=== PATIENT | female | born 1955 | race Caucasian/White ===

== ENCOUNTER → 2020-05-07 | Outpatient (CLI) | payer OTHER ==
[~2020-05-07] MED LIST: CAPTPOW PO; CLON-412 OR; EVISTA PO; HCTZ PO; IRONTAB3 PO; LEXA1TAB OR; MET; METFORMIN PO; OMEP20TA7 OR; PERC7.5T8 OR; PRAVASTATIN PO; XANA0.25 OR
--- NOTE | 2020-05-12 14:18 | SLEEPCENT ---
DATE: 05/07/2020 ORDERED BY: Yaakov Fields Nocturnal polysomnography was performed for evaluation of sleep physiology in this patient with a history of excessive somnolence and nonrestorative sleep and snoring, who has comorbidities of hypertension and diabetes. There was 8 hours and 7 minutes of data reviewed. There was 402.5 minutes of sleep identified. Sleep latency was prolonged at 40 minutes. REM latency was very prolonged at 312 minutes. Sleep architecture showed fragmentation and poor progression. There were two REM cycles noted late in the study. Overall sleep efficiency was 83.5%. The electrocardiogram showed a sinus rhythm with an average heart rate of 76 beats per minute. Unifocal ventricular ectopic beats were seen. EEG showed reasonably normal waveforms for wake and sleep. There were 190 respiratory events identified of 10 seconds in duration or greater, for an apnea-hypopnea index of 28.3. The events were obstructive, not exclusive to sleep stage nor body posture. Arousals from respiratory events occurred 5.1 times per hour, and oxygen desaturations were seen below 90%. IMPRESSION: Obstructive sleep apnea syndrome (G47.33). Apnea-hypopnea index 23.8. RECOMMENDATION: The patient should be encouraged to return to the sleep disorder center for pressure therapy. In the interim, alcohol and sedative avoidance should be practiced and caution exercised during the operation of motor vehicles. HAYLEYD
== END ==
LOC: M SLEEP 20:00
PROVIDERS: ATTEND Physician Assistant
DX: G47.33 Obstructive sleep apnea (adult) (pediatric) (principal); R40.0 Somnolence

== ENCOUNTER → 2020-07-02 | Outpatient (CLI) | payer OTHER ==
--- NOTE | 2020-07-06 14:25 | SLEEPHOME ---
DATE: 07/02/2020 ORDERED BY: MIKAELA Weber Nocturnal polysomnography was performed for the titration of pressure therapy in this patient with obstructive sleep apnea syndrome with apnea-hypopnea index of 23.8. For testing a ResMed AirFit F30 full face mask of small size was used, 4 cm of water pressure were applied to the circuit, and the lights were extinguished. Seven hours and 34 minutes of data were reviewed. There were 385 minutes of sleep identified. Sleep latency was short at 7.5 minutes. REM sleep was delayed at 223 minutes. Sleep architecture was better with optimal pressure therapy and there were three REM cycles noted. Overall sleep efficiency was 85.9%. The electrocardiogram showed a sinus rhythm with an average heart rate of 68 beats per minute. EEG showed normal waveforms for wake and sleep. Respiratory events were best palliated with CPAP at a pressure of +10 with some persistent limb activity noted in the EMG leads. Limb movement arousal index was 59.2. IMPRESSION: * Obstructive sleep apnea syndrome (G47.33). * Possible periodic limb movement disorder (G47.61). RECOMMENDATION: Nightly use of pressure therapy at 10 cm of water should be sufficient to address the obstructive respiratory events. Should sleep symptoms persist, intervention to reduce the frequency or arousal from limb activity may also be helpful. MTDD
== END ==
LOC: M SLEEP 20:00
PROVIDERS: ATTEND Physician Assistant
DX: G47.33 Obstructive sleep apnea (adult) (pediatric) (principal)

== ENCOUNTER → 2020-07-20 | Outpatient (CLI) | payer SELFPAY | LOC: M LABSMTC 12:04 | PROVIDERS: ATTEND Pediatrics | DX: Z20.828 Contact with and (suspected) exposure to other viral communicable diseases (principal) ==

== ENCOUNTER → 2020-08-05 | Outpatient (REF) | payer OTHER ==
[2020-08-06 16:08] LABS: ENDOMYSIAL ABY IgA Negative (Negative); TISSUE TRANSGLUTAMINASE IgA <2 U/mL (0-3); TISSUE TRANSGLUTAMINASE IgG 4 U/mL (0-5)
== END ==
LOC: M LAB REF 12:13
PROVIDERS: ATTEND Internal Medicine
DX: K21.9 Gastro-esophageal reflux disease without esophagitis (principal); D12.5 Benign neoplasm of sigmoid colon

== ENCOUNTER → 2021-04-05 | Outpatient (CLI) | payer MEDICARE ==
--- NOTE | 2021-04-05 17:01 | DEXAMM ---
INDICATION: Z13.820 SCREENING FOR OSTEOPOROSIS. COMPARISON: 02/03/2014, 11/11/2003. TECHNIQUE: Bone density was measured using dual-energy x-ray absorptiometry (DEXA). FINDINGS: AP SPINE L1-L4 BMD 1.449 g/cm2 Young Adult T-Score 2.1 Age Matched Z-Score 3.7. LT FEMUR, TOTAL BMD 1.042 g/cm2 Young Adult T-Score 0.3 Age Matched Z-Score 1.5. LT NECK BMD 1.024 g/cm2 Young Adult T-Score -0.1 Age Matched Z-Score 1.4. RT FEMUR, TOTAL BMD 1.105 g/cm2 Young Adult T-Score 0.8 Age Matched Z-Score 2.0. RT NECK BMD 1.118 g/cm2 Young Adult T-Score 0.6 Age Matched Z-Score 2.1. IMPRESSION: There is normal bone density of the spine. There is normal bone density of the left hip. There is normal bone density of the right hip. The density of the spine has increased 25.7% since the initial exam on 11/11/2003. The density of the spine increased 25.5% since most recent exam on 02/03/2014. The density of the left hip has decreased 0.4% since initial exam on 11/11/2003. The density of the left hip has increased 4.3% since most recent exam on 02/03/2014. The density of the right hip has increased 4.3% since the initial exam on 11/11/2003. The density of the right hip has increased 3.9% since the most recent exam on 02/03/2014. FOLLOW-UP: Recommendation for the next bone density exam: 5 years. <Electronically signed by Olman Petty > 04/05/21 [id number]
== END ==
LOC: M WHC 10:13
PROVIDERS: ATTEND Internal Medicine
DX: Z13.820 Encounter for screening for osteoporosis (principal); M81.0 Age-related osteoporosis without current pathological fracture

== ENCOUNTER → 2022-08-29 | Outpatient (CLI) | payer MEDICARE | LOC: M RAD 09:08 | PROVIDERS: ATTEND Nurse Practitioner Family | DX: K21.9 Gastro-esophageal reflux disease without esophagitis (principal); E55.9 Vitamin D deficiency, unspecified; Z80.0 Family history of malignant neoplasm of digestive organs; R14.0 Abdominal distension (gaseous); K76.0 Fatty (change of) liver, not elsewhere classified ==

== ENCOUNTER → 2022-10-10 | Outpatient (REF) | payer MEDICARE | LOC: M LAB REF 13:31 | PROVIDERS: ATTEND Internal Medicine | DX: K76.0 Fatty (change of) liver, not elsewhere classified (principal) ==

== ENCOUNTER → 2024-02-07 | Outpatient (REF) | payer MEDICARE ==
[2024-02-07 19:06] LABS: PERCENT SATURATION 9.6 % (13.2-45.0)
[2024-02-07 19:07] LABS: FERRITIN 9.7 NG/ML (7.3-270.7)
== END ==
LOC: M LAB REF 16:21
PROVIDERS: ATTEND Internal Medicine
DX: K21.9 Gastro-esophageal reflux disease without esophagitis (principal); R14.0 Abdominal distension (gaseous); K57.30 Diverticulosis of large intestine without perforation or abscess without bleeding

== ENCOUNTER → 2024-04-11 | Outpatient (CLI) | payer MEDICARE ==
[2024-04-11 12:28] LABS: BLOOD UREA NITROGEN 26 MG/DL (9-23); CREATININE FOR GFR 0.75 MG/DL (0.55-1.30); GLOMERULAR FILTRATION RATE > 60.0 (>45)
== END ==
LOC: M LAB 11:23
PROVIDERS: ATTEND Surgery
DX: K43.2 Incisional hernia without obstruction or gangrene (principal)

== ENCOUNTER → 2024-04-25 | Outpatient (CLI) | payer MEDICARE ==
[~2024-04-25] MED LIST changes: +GASTROGRAFIN SOLUTION 30ML As Ordered ONE; +ISOVUE-370 76% 100ML VIAL As Ordered ONE
== END ==
LOC: M RAD 14:29
PROVIDERS: ATTEND Surgery
DX: K76.0 Fatty (change of) liver, not elsewhere classified (principal); M47.816 Spondylosis without myelopathy or radiculopathy, lumbar region; M47.817 Spondylosis without myelopathy or radiculopathy, lumbosacral region; Z87.19 Personal history of other diseases of the digestive system
CPT/HCPCS: 74177; Q9963; Q9967